=== PATIENT | female | born 1995 | race Caucasian/White ===

== ENCOUNTER 2023-10-10 07:31 | Outpatient (AMB) | payer OTHER, SELFPAY ==
--- NOTE | 2023-10-10 07:37 | MHC.PC.OV ---
Vital Signs 10/10/23 07:38 Height 5 ft 6 in Weight 295 lb BMI 47.6 BP 116/80 Blood Pressure Location Lt brachial Position Sitting Pulse 87 Pulse Source Pulse Oximeter Pulse Oximetry (%) 97 Oxygen Delivery Method Room Air Intake Visit Reasons: NPV/requesting phy Intake Note: Pt is here today as a New Patient to [facility] care/ PE Is last menstrual period known: Yes Last menstrual period: 09/09/23 Allergies No Known Allergies Allergy (Verified 10/10/23 07:39) Medication List - Last Reconciled 10/10/23 by Zahra Hilario MD bupropion HCl XL 150 mg PO DAILY fluoxetine 20 mg PO DAILY Tobacco use date assessed: 10/10/23 Dental Screening Dental Screen Date: 10/10/23 Did you have a dental visit in the last 12 months?: Yes Did you have a dental problem in the last 6 months where you did not have access to dental care?: Yes Was dental information given to patient?: Patient has dentist HPI NPV/requesting phy HPI Details Pt presents for [employer] PE. pt is concerned about gaining weight since Covid , 60 lbs. PFSH Family History (Updated 10/10/23 @ 07:56 by Zahra Hilario MD) Father Hyperlipidemia Social History (Updated 10/10/23 @ 07:58 by Zahra Hilario MD) Household Members Other:: lives with [facility], moved from [place], works at [employer] Housing: Apartment Patient Tobacco Use Status: Never used Tobacco e-Cigarette/Vaping Use: Never Used service: No Current occupational status: employed Cognitive needs: No Hearing needs: No Vision needs: Yes Female Reproductive History Menstrual Date of last menstrual period: 09/09/23 Questionnaire AUDIT C Alcohol Use Questionnaire (AUDIT-C) 1. How often do you have a drink containing alcohol?: Never Total Score: 0 Review of Systems Const All systems reviewed & are unremarkable except as noted in HPI and below Reports no additional complaints Eyes Reports no additional complaints ENT Reports no additional complaints Card Reports no additional complaints Resp Reports no additional complaints GI Reports no additional complaints Reports no additional complaints Physical exam (Primary Care) Vital Signs: Last Vital Signs Pulse 87 10/10/23 07:38 BP 116/80 10/10/23 07:38 Pulse Ox 97 10/10/23 07:38 Oxygen Delivery Method Room Air 10/10/23 07:38 BMI result Body Mass Index 47.6 Tobacco/Smoking Status: Tobacco use Status Tobacco use date assessed 10/10/23 10/10/23 07:42 Patient Tobacco Use Status Never used Tobacco 10/10/23 07:58 e-Cigarette/Vaping Use Never Used 10/10/23 07:58 Const General: no acute distress HENMT Head: Yes normal to inspection General nose exam: Normal external nose present Face and sinus: Yes normal facial exam Mouth: Normal oral and palatal mucosa present Throat: Yes posterior oropharynx normal Eyes General: appearance normal, both eyes and all related structures Neck Neck: Yes no lymphadenopathy and Yes supple Resp Effort & Inspection: normal respiratory effort Auscultation: clear to auscultation bilaterally Cardio Rhythm: regular rhythm Heart sounds: S1 normal heart sound present and S2 normal heart sound present GI Inspection: Yes normal to inspection Palpation (GI): Soft to palpation Percussion: Yes normal to percussion Auscultation: normal bowel sounds Assessment and Plan Assessment & Plan (1) Annual physical exam: Code(s): Z00.00 - Encounter for general adult medical examination without abnormal findings Plan: well balanced diet, regular exercise, weight loss discussed (2) Overweight: Code(s): E66.3 - Overweight (3) Anxiety and depression: Comment: controlled on meds Code(s): F41.9 - Anxiety disorder, unspecified; F32.A - Depression, unspecified (4) Normal pelvic exam: Comment: 2020, never sex active Code(s): Z01.419 - Encounter for gynecological examination (general) (routine) without abnormal findings (5) Hyperlipidemia: Code(s): E78.5 - Hyperlipidemia, unspecified Orders: Orders Complete Blood Count Auto Diff Today E78.5 - Hyperlipidemia, unspecified, Z00.00 - Encounter for general adult medical examination without abnormal findings Lipid Panel Today E78.5 - Hyperlipidemia, unspecified, Z00.00 - Encounter for general adult medical examination without abnormal findings UA w Microscopic Today E78.5 - Hyperlipidemia, unspecified, Z00.00 - Encounter for general adult medical examination without abnormal findings Comprehensive [place]. Panel Fast Today E78.5 - Hyperlipidemia, unspecified, Z00.00 - Encounter for general adult medical examination without abnormal findings TSH reflex Free T4 Today E78.5 - Hyperlipidemia, unspecified, Z00.00 - Encounter for general adult medical examination without abnormal findings Medications: New bupropion HCl XL 150 mg PO DAILY 90 tabs 3RF fluoxetine 20 mg PO DAILY 90 caps 3RF Coding Level of Care Code New Pt Prev Care 18-39yr([id number] Diagnoses Annual physical exam Z00.00 Overweight E66.3 Anxiety and depression F41.9; F32.A Normal pelvic exam Z01.419 Hyperlipidemia E78.5
[2023-10-10 07:38] VITALS: BP 116/80; PULSE 87; O2SAT 97; BMI 47.6
== END 2023-10-10 08:15 | disposition home or self-care (01) ==
LOC: HO.HMGC 07:31
PROVIDERS: Visit Provider Internal Medicine
DX: Z00.00 Encounter for general adult medical examination without abnormal findings (principal); E66.3 Overweight; F41.9 Anxiety disorder, unspecified; F32.A Depression, unspecified; Z01.419 Encounter for gynecological examination (general) (routine) without abnormal findings; E78.5 Hyperlipidemia, unspecified
CPT/HCPCS: 99385

== ENCOUNTER 2023-10-10 08:18 | Outpatient (REF) | payer OTHER, SELFPAY ==
[2023-10-10 11:19] LABS: MANUAL DIFF FLAG NO
[2023-10-10 11:20] LABS: Appearance Urine Cloudy; Color Urine Yellow; Glucose Urine UA Negative (Negative); Leukocyte Esterase Urine Small (1+) (Negative); Nitrite Urine Negative (Negative); UMIC TRIGGER UA YES; Urine Blood Negative (Negative); Urine Ketones Trace mg/dL (Negative); Urine Protein Trace mg/dL (Neg-Trace)
[2023-10-10 11:22] LABS: Basophils Absolute Auto 0.1 X10*3/uL (0.0-0.2); Basophils Percent Auto 0.8 % (0-2); Eosinophils Absolute Auto 0.1 X10*3/uL (0.0-0.4); Eosinophils Percent Auto 1.3 % (0-4); Hematocrit 42.2 % (37.0-47.0); Imm Gran Abs Auto 0.01 X10*3/uL (0.00-0.03); Imm Gran Pct Auto 0.1 % (0.0-0.4); Lymphocytes Absolute Auto 2.2 X10*3/uL (1.2-4.9); Lymphocytes Percent Auto 27.6 % (20-40); Mean Corpuscular HGB Conc 33.2 g/dl (31.0-35.0); Mean Corpuscular Hemoglobin 28.9 pg (27.0-33.0); Mean Platelet Volume 11.1 fL (9.4-12.3); Monocytes Absolute Auto 0.4 X10*3/uL (0.1-1.2); Monocytes Percent Auto 5.4 % (2-11); Neutrophils Absolute Auto 5.1 x10*3/uL (2.0-8.3); Neutrophils Percent Auto 64.8 % (45-73); Platelet Count 329 X10*3/uL (160-400); Red Blood Count 4.85 X10*6/uL (4.20-5.50); Red Cell Distribution Width 13.2 % (11.0-16.0); White Blood Count 7.9 X10*3/uL (4.8-10.8)
[2023-10-10 11:31] LABS: Bacteria Urine 1+ (None Seen); Hyaline Casts Urine 0-2 /LPF (0-2); RBC Urine 0-2 /HPF (0-2); WBC Urine 0-5 /HPF (0-5)
[2023-10-10 11:43] LABS: Alanine Aminotransferase 26 U/L (0-31); Albumin Level 4.3 g/dL (3.5-5.0); Alkaline Phosphatase 113 U/L (39-117); Anion Gap 15 (12-20); Aspartate Amino Transferase 19 U/L (5-31); Bilirubin Total 0.3 mg/dL (0.0-1.0); Blood Urea Nitrogen 8 mg/dL (9-16); Calcium 9.3 mg/dL (8.4-10.2); Carbon Dioxide 24 mmol/L (22-29); Chloride 104 mmol/L (96-108); Cholesterol 197 mg/dL (<200); Estimated Glomerular Filt Rate > 60; Glucose Fasting 102 mg/dL (60-99); HDL Cholesterol 59 mg/dL (>40); LDL Cholesterol Calculated 117 mg/dL (<100); Potassium 4.2 mmol/L (3.3-5.1); Sodium 139 mmol/L (135-145); Total Protein 7.7 g/dL (6.5-8.0); Triglycerides 109 mg/dL (<150)
[2023-10-10 12:02] LABS: TSH reflex Free T4 1.82 uIU/mL (0.32-4.0)
== END 2023-10-10 08:19 | disposition home or self-care (01) ==
LOC: HO.HMGCLDS 08:18
PROVIDERS: PCP Internal Medicine; Visit Provider Internal Medicine
DX: Z00.00 Encounter for general adult medical examination without abnormal findings (principal); E78.5 Hyperlipidemia, unspecified
CPT/HCPCS: 36415; 80053; 80061; 81001; 84443; 85025

== ENCOUNTER 2024-08-05 11:50 | Outpatient (AMB) | payer OTHER, SELFPAY ==
--- NOTE | 2024-08-05 11:56 | MHC.PC.OV ---
Vital Signs 08/05/24 11:58 Height 5 ft 6 in Weight 307 lb BMI 49.5 BP 122/80 Blood Pressure Location Lt brachial Position Sitting Respiration 18 Pulse 96 Pulse Source Pulse Oximeter Temp 98.6 F Temp Source Oral Pulse Oximetry (%) 96 Oxygen Delivery Method Room Air Intake Visit Reasons: Throat problems Intake Note: Pt is here today for a sick visit. Pt c/o cough in the morning and at night and its difficult to swallow at times pt states that it has been going on for over a month. Allergies No Known Allergies Allergy (Verified 08/05/24 12:10) Tobacco use date assessed: 08/05/24 Dental Screening Dental Screen Date: 08/05/24 Did you have a dental visit in the last 12 months?: Yes Did you have a dental problem in the last 6 months where you did not have access to dental care?: No Was dental information given to patient?: Patient has dentist HPI Throat problems HPI Details Pt presents c/o postnasal drip and coating on her tongue on and off for a few weeks. Pt denies fever, chills, cough, sore throat. PFSH Family History Father Hyperlipidemia Social History Household Members Other:: lives with [facility], moved from [place], works at [employer] Housing: Apartment Patient Tobacco Use Status: Never used Tobacco e-Cigarette/Vaping Use: Never Used service: No Current occupational status: employed Cognitive needs: No Hearing needs: No Vision needs: Yes Questionnaire PHQ-9 Over the last 2 weeks, how often have you been bothered by any of the following problems? 1. Little interest or pleasure in doing things: not at all 2. Feeling down, depressed, or hopeless: several days 3. Trouble falling or staying asleep, or sleeping too much: more than half the days 4. Feeling tired or having little energy: several days 5. Poor appetite or overeating: several days 6. Feeling bad about yourself - or that you are a failure or have let yourself or your family down: not at all 7. Trouble concentrating on things, such as reading the newspaper or watching television: more than half the days 8. Moving or speaking so slowly that other people could have noticed. Or the opposite - being so fidgety or restless that you have been moving around a lot more than usual: not at all 9. Thoughts that you would be better off or of hurting yourself in some way: not at all Total score: 7 Depression Screening Interpretation: Negative Depression Screening Done: Yes 87667 - PHQ-9 Billing: Yes Source: Developed by Drs. Damian Fay, Kayla Kerr, Gage Amos and colleagues, with an educational osman from [employer]. Thrive Questionnaire Date Thrive assessed: 08/05/24 I am a: Patient What is your living situation today?: I have a steady place to live Within the past 12 months, did the food you bought not last and you didn't have the money to get more?: Never true Within the past 12 months, did you worry whether your food would run out before you got money to buy more?: Sometimes True Do you have trouble paying for medicines?: No Do you have trouble getting transportation to medical appointments?: No Do you have trouble paying your heating and electricity bill?: No Do you have trouble taking care of your child, family member or friend?: No Do you have trouble with day-to-day activities such as bathing, preparing meals, shopping, managing finances, etc.?: No Are you currently unemployed and looking for a job?: No Are you interested in more education?: Yes Please select the resources that you would like help with: None Currently or been in a relationship where the following occur: No concerns reported THRIVE Score: 1 AUDIT C Alcohol Use Questionnaire (AUDIT-C) 1. How often do you have a drink containing alcohol?: Monthly or less 2. How many drinks containing alcohol do you have on a typical day when you are drinking?: 1 or 2 3. How often do you have six or more drinks on one occasion?: Never Total Score: 1 NAREN-7 AMB Questionnaire NAREN-7 Date NAREN - 7 assessed: 08/05/24 Feeling nervous, anxious, or on edge: 1 = Several days Not being able to stop or control worryin = Several days Worrying too much about different things: 1 = Several days Trouble relaxin = Several days Being so restless that it is hard to sit still: 1 = Several days Becoming easily annoyed or irritable: 0 = Not at all Feeling afraid as if something awful might happen: 0 = Not at all Total NAREN-7 score (0-4 normal; 5-9 mild; 10-14 moderate; 15-21 severe): 5 Source: Developed by Drs. Damian Fay, Kayla Kerr, Gage Amos and colleagues, with an educational osman from [employer]. NAREN-7 Assessment Billing NAREN-7 Assessment Tool: NAREN-7 Assessment 53680 Review of Systems Const All systems reviewed & are unremarkable except as noted in HPI and below Eyes Reports no additional complaints ENT Reports no additional complaints Card Reports no additional complaints Resp Reports no additional complaints GI Reports no additional complaints Physical exam (Primary Care) Vital Signs: Last Vital Signs Temp 98.6 F 08/05/24 11:58 Pulse 96 08/05/24 11:58 Resp 18 08/05/24 11:58 BP 122/80 08/05/24 11:58 Pulse Ox 96 08/05/24 11:58 Oxygen Delivery Method Room Air 08/05/24 11:58 BMI result Body Mass Index 49.5 Tobacco/Smoking Status: Tobacco use Status Tobacco use date assessed 08/05/24 08/05/24 12:13 Patient Tobacco Use Status Never used Tobacco 08/05/24 11:56 e-Cigarette/Vaping Use Never Used 08/05/24 11:56 PHQ-9: PHQ-9 Score PHQ-9: Total score 7 08/05/24 12:42 Depression Screening Interpretation: Negative Thrive Assessment: Date of Thrive Assessment Date Thrive assessed 08/05/24 08/05/24 11:56 Currently or been in a relationship where the following occur: No concerns reported Const General: no acute distress HENMT Head: Yes normal to inspection Ears: TM's normal bilaterally Face and sinus: Yes normal facial exam Mouth: Normal oral and palatal mucosa present and oropharynx normal Throat: Yes postnasal drainage Eyes General: appearance normal, both eyes and all related structures Neck Neck: Yes no lymphadenopathy and Yes supple Resp Effort & Inspection: normal respiratory effort Auscultation: clear to auscultation bilaterally Cardio Rhythm: regular rhythm Heart sounds: S1 normal heart sound present and S2 normal heart sound present Coding Level of Care Code Est Pt Level 3 (37888) Diagnoses Postnasal drip R09.82 Additional Codes NAREN-7 Assessment Billing - NAREN-7 Assessment Tool: NAREN-7 Assessment 56832 ([id number]) PHQ-9 - 78638 - PHQ-9 Billing: Yes ([id number]) Assessment & Plan Assessment & Plan (1) Postnasal drip: Code(s): R09.82 - Postnasal drip Category: Medical Plan: Patient was advised to try antihistamine and saline nasal spray for 2 weeks if her symptoms persist she will add Flonase nasal spray
[2024-08-05 11:58] VITALS: BP 122/80; PULSE 96; RESP 18; TEMP 37; O2SAT 96; BMI 49.5
== END 2024-08-05 12:33 | disposition home or self-care (01) ==
LOC: HO.HMCC 11:50
PROVIDERS: PCP Internal Medicine; Visit Provider Internal Medicine
DX: R09.82 Postnasal drip (principal)

== ENCOUNTER → 2024-08-05 11:50 | Outpatient (BNVA) | payer OTHER, SELFPAY | PROVIDERS: PCP Internal Medicine; Visit Provider Internal Medicine | DX: R09.82 Postnasal drip (principal) | CPT/HCPCS: 96127 ==

== ENCOUNTER 2024-11-12 12:14 | Outpatient (AMB) | payer OTHER, SELFPAY ==
[2024-11-12 12:30] VITALS: BP 124/82; PULSE 96; RESP 18; TEMP 36.9; O2SAT 98; BMI 48.9
--- NOTE | 2024-11-12 12:30 | A.OFFPC_ITS ---
Vital Signs 11/12/24 12:30 Height 5 ft 6 in Weight 303 lb BMI 48.9 BP 124/82 Blood Pressure Location Lt brachial Position Sitting Respiration 18 Pulse 96 Pulse Source Pulse Oximeter Temp 98.4 F Temp Source Oral Pulse Oximetry (%) 98 Oxygen Delivery Method Room Air Intake Visit Reasons: Annual PE Intake Note: Pt is here today for PE. Allergies No Known Allergies Allergy (Verified 11/12/24 12:30) Medication List - Last Reconciled 11/12/24 by Zahra Hilario MD bupropion HCl XL 150 mg PO DAILY fluoxetine 20 mg PO DAILY Tobacco use date assessed: 11/12/24 Dental Screening Dental Screen Date: 11/12/24 Did you have a dental visit in the last 12 months?: Yes Did you have a dental problem in the last 6 months where you did not have access to dental care?: No Was dental information given to patient?: Patient has dentist HPI Annual PE HPI Details Pt presents for PE. [facility], [facility] Medical History Normal pelvic exam Annual physical exam Overweight Hyperlipidemia Anxiety and depression Surgical History (Updated 11/12/24 @ 12:35 by TEODORA Sierra) No pertinent past surgical history Family History (Updated 11/12/24 @ 12:36 by TEODORA Sierra) Father Hyperlipidemia Hypertension Mother No problems noted. Social History Household Members Other:: lives with [facility], moved from [place], works at [employer] Housing: Apartment Patient Tobacco Use Status: Never used Tobacco e-Cigarette/Vaping Use: Never Used Second Hand Smoke Exposure: No service: No Current occupational status: employed Cognitive needs: No Hearing needs: No Vision needs: Yes Questionnaire PHQ-9 Over the last 2 weeks, how often have you been bothered by any of the following problems? 1. Little interest or pleasure in doing things: not at all 2. Feeling down, depressed, or hopeless: several days 3. Trouble falling or staying asleep, or sleeping too much: more than half the days 4. Feeling tired or having little energy: several days 5. Poor appetite or overeating: several days 6. Feeling bad about yourself - or that you are a failure or have let yourself or your family down: not at all 7. Trouble concentrating on things, such as reading the newspaper or watching television: more than half the days 8. Moving or speaking so slowly that other people could have noticed. Or the opposite - being so fidgety or restless that you have been moving around a lot more than usual: not at all 9. Thoughts that you would be better off or of hurting yourself in some way: not at all Total score: 7 Depression Screening Interpretation: Negative Depression Screening Done: Yes 77300 - PHQ-9 Billing: Yes Source: Developed by Drs. Damian Fay, Kayla Kerr, Gage Amos and colleagues, with an educational osman from [employer] Thrive Questionnaire Date Thrive assessed: 11/12/24 I am a: Patient What is your living situation today?: I have a steady place to live Within the past 12 months, did the food you bought not last and you didn't have the money to get more?: Never true Within the past 12 months, did you worry whether your food would run out before you got money to buy more?: Sometimes True Do you have trouble paying for medicines?: No Do you have trouble getting transportation to medical appointments?: No Do you have trouble paying your heating and electricity bill?: No Do you have trouble taking care of your child, family member or friend?: No Do you have trouble with day-to-day activities such as bathing, preparing meals, shopping, managing finances, etc.?: No Are you currently unemployed and looking for a job?: No Are you interested in more education?: Yes Please select the resources that you would like help with: None Currently or been in a relationship where the following occur: No concerns reported THRIVE Score: 1 AUDIT C Alcohol Use Questionnaire (AUDIT-C) 1. How often do you have a drink containing alcohol?: Monthly or less 2. How many drinks containing alcohol do you have on a typical day when you are drinking?: 1 or 2 3. How often do you have six or more drinks on one occasion?: Never Total Score: 1 NAREN-7 AMB Questionnaire NAREN-7 Date NAREN - 7 assessed: 11/12/24 Feeling nervous, anxious, or on edge: 1 = Several days Not being able to stop or control worryin = Several days Worrying too much about different things: 1 = Several days Trouble relaxin = Several days Being so restless that it is hard to sit still: 0 = Not at all Becoming easily annoyed or irritable: 0 = Not at all Feeling afraid as if something awful might happen: 0 = Not at all Total NAREN-7 score (0-4 normal; 5-9 mild; 10-14 moderate; 15-21 severe): 4 Source: Developed by Drs. Damian Fay, Kayla Kerr, Gage Amos and colleagues, with an educational osman from [employer] NAREN-7 Assessment Billing NAREN-7 Assessment Tool: NAREN-7 Assessment 69493 Review of Systems Const All systems reviewed & are unremarkable except as noted in HPI and below Reports no additional complaints Eyes Reports no additional complaints ENT Reports no additional complaints Card Reports no additional complaints Resp Reports no additional complaints GI Reports no additional complaints Reports no additional complaints Physical exam (Primary Care) Vital Signs: Last Vital Signs Temp 98.4 F 11/12/24 12:30 Pulse 96 11/12/24 12:30 Resp 18 11/12/24 12:30 BP 124/82 11/12/24 12:30 Pulse Ox 98 11/12/24 12:30 Oxygen Delivery Method Room Air 11/12/24 12:30 BMI result Body Mass Index 48.9 Tobacco/Smoking Status: Tobacco use Status Tobacco use date assessed 11/12/24 11/12/24 12:37 Patient Tobacco Use Status Never used Tobacco 11/12/24 12:37 e-Cigarette/Vaping Use Never Used 11/12/24 12:37 PHQ-9: PHQ-9 Score PHQ-9: Total score 7 11/12/24 13:13 Depression Screening Interpretation: Negative Thrive Assessment: Date of Thrive Assessment Date Thrive assessed 11/12/24 11/12/24 12:37 Currently or been in a relationship where the following occur: No concerns reported Const General: no acute distress HENMT Head: Yes normal to inspection Mouth: Normal oral and palatal mucosa present Throat: Yes posterior oropharynx normal Eyes General: appearance normal, both eyes and all related structures Neck Neck: Yes no lymphadenopathy and Yes supple Resp Effort & Inspection: normal respiratory effort Auscultation: clear to auscultation bilaterally Cardio Rhythm: regular rhythm Heart sounds: S1 normal heart sound present and S2 normal heart sound present GI Inspection: Yes normal to inspection Palpation (GI): Soft to palpation Percussion: Yes normal to percussion Auscultation: normal bowel sounds Coding Level of Care Code Est Pt Prev Care 18-39y(14260) Diagnoses Annual physical exam Z00.00 Hyperlipidemia E78.5 Anxiety and depression F41.9; F32.A Additional Codes NAREN-7 Assessment Billing - NAREN-7 Assessment Tool: NAREN-7 Assessment 06982 ([id number]) PHQ-9 - 48141 - PHQ-9 Billing: Yes ([id number]) Assessment & Plan Assessment & Plan (1) Annual physical exam: Code(s): Z00.00 - Encounter for general adult medical examination without abnormal findings Category: Medical Plan: well balanced diet, increase exercise, weight loss discussed, check labs (2) Hyperlipidemia: Code(s): E78.5 - Hyperlipidemia, unspecified Category: Medical Plan: Low-cholesterol diet discussed with the patient, she will have a fasting blood work (3) Anxiety and depression: Comment: controlled on meds Code(s): F41.9 - Anxiety disorder, unspecified; F32.A - Depression, unspecified Category: Medical Plan: Continue current medications follow-up in 1 year Orders: Orders Comprehensive [employer]. Panel Fast Today E78.5 - Hyperlipidemia, unspecified, F32.A - Depression, unspecified, F41.9 - Anxiety disorder, unspecified, Z00.00 - Encounter for general adult medical examination without abnormal findings Hemoglobin A1c Today E78.5 - Hyperlipidemia, unspecified, F32.A - Depression, unspecified, F41.9 - Anxiety disorder, unspecified, Z00.00 - Encounter for general adult medical examination without abnormal findings Complete Blood Count Auto Diff Today E78.5 - Hyperlipidemia, unspecified, F32.A - Depression, unspecified, F41.9 - Anxiety disorder, unspecified, Z00.00 - Encounter for general adult medical examination without abnormal findings UA w Microscopic Today E78.5 - Hyperlipidemia, unspecified, F32.A - Depression, unspecified, F41.9 - Anxiety disorder, unspecified, Z00.00 - Encounter for general adult medical examination without abnormal findings TSH reflex Free T4 Today E78.5 - Hyperlipidemia, unspecified, F32.A - Depression, unspecified, F41.9 - Anxiety disorder, unspecified, Z00.00 - Encounter for general adult medical examination without abnormal findings Lipid Panel Today E78.5 - Hyperlipidemia, unspecified, F32.A - Depression, unspecified, F41.9 - Anxiety disorder, unspecified, Z00.00 - Encounter for general adult medical examination without abnormal findings Testosterone, Free/Total Today Z00.00 - Encounter for general adult medical examination without abnormal findings DHEA Sulfate Today Z00.00 - Encounter for general adult medical examination without abnormal findings
== END 2024-11-12 13:21 | disposition home or self-care (01) ==
LOC: HO.HMCC 12:14
PROVIDERS: PCP Internal Medicine; Visit Provider Internal Medicine
DX: Z00.00 Encounter for general adult medical examination without abnormal findings (principal); E78.5 Hyperlipidemia, unspecified; F41.9 Anxiety disorder, unspecified; F32.A Depression, unspecified

== ENCOUNTER 2024-11-12 12:14 | Outpatient (REF) | payer OTHER, SELFPAY ==
[2024-11-12 16:32] LABS: MANUAL DIFF FLAG NO
[2024-11-12 16:38] LABS: Hematocrit 41.1 % (37.0-47.0); Hemoglobin 14.1 g/dl (12.0-16.0); Imm Gran Abs Auto 0.01 X10*3/uL (0.00-0.03); Imm Gran Pct Auto 0.1 % (0.0-0.4); Lymphocytes Absolute Auto 2.7 X10*3/uL (1.2-4.9); Mean Corpuscular HGB Conc 34.3 g/dl (31.0-35.0); Mean Corpuscular Hemoglobin 29.7 pg (27.0-33.0); Mean Corpuscular Volume 86.5 fL (80.0-98.0); NRBC Abs Auto 0.000 X10*3/uL (0.0-0.012); NRBC Pct Auto 0.0 /100WBC (0.0-0.2); Platelet Count 149 X10*3/uL (160-400); Red Blood Count 4.75 X10*6/uL (4.20-5.50); White Blood Count 7.2 X10*3/uL (4.8-10.8)
[2024-11-12 16:48] LABS: Appearance Urine Clear; Glucose Urine UA Negative (Negative); PH 6.5 (5.0-9.0); Specific Gravity - Urine 1.020 (1.005-1.025); UMIC TRIGGER UA YES
[2024-11-12 16:49] LABS: Hemoglobin A1C 119.3466 umol/L; Total Hemoglobin (HGBA1C) 3652.8422 umol/L
[2024-11-12 16:56] LABS: Alanine Aminotransferase 24 U/L (0-31); Albumin Level 4.4 g/dL (3.5-5.0); Alkaline Phosphatase 104 U/L (39-117); Anion Gap 14 (12-20); Aspartate Amino Transferase 22 U/L (5-31); Blood Urea Nitrogen 11 mg/dL (9-16); Calcium 8.7 mg/dL (8.4-10.2); Carbon Dioxide 24 mmol/L (22-29); Chloride 105 mmol/L (96-108); Cholesterol 201 mg/dL (<200); Estimated Glomerular Filt Rate > 60; HDL Cholesterol 48 mg/dL (>40); Potassium 3.8 mmol/L (3.3-5.1); Sodium 139 mmol/L (135-145); Total Protein 7.3 g/dL (6.5-8.0); Triglycerides 127 mg/dL (<150)
[2024-11-16 19:39] LABS: Testosterone, Free 3.4 pg/mL (0.1-6.4)
== END 2024-11-12 12:15 | disposition home or self-care (01) ==
LOC: HO.HMGCLDS 12:14
PROVIDERS: PCP Internal Medicine; Visit Provider Internal Medicine
DX: Z00.00 Encounter for general adult medical examination without abnormal findings (principal); E78.5 Hyperlipidemia, unspecified; F41.9 Anxiety disorder, unspecified; F32.A Depression, unspecified; Z13.31 Encounter for screening for depression; Z13.39 Encounter for screening examination for other mental health and behavioral disorders
CPT/HCPCS: 36415; 80053; 80061; 81001; 82627; 83036; 84402; 84403; 84443; 85025; 96127